=== PATIENT | male | born 1965 | race Hispanic/Latino ===

== ENCOUNTER 2021-06-08 08:17 | Day surgery (SDC) | payer OTHER ==
[2021-06-06 10:33] LABS: BASOPHILS % (AUTO) 0.7 % (0.0-5.0); EOSINOPHILS % (AUTO) 6.4 % (0.0-8.0); HEMATOCRIT 44.2 % (42-54); LYMPHOCYTES % (AUTO) 14.4 % (21.0-51.0); MEAN CORPUSCULAR HEMOGLOBIN 30.7 pg (27.0-33.0); MEAN CORPUSCULAR HGB CONC 33.7 g/dL (32.0-36.0); MEAN CORPUSCULAR VOLUME 90.9 fL (79-99); MONOCYTES % (AUTO) 6.4 % (3.0-13.0); NEUTROPHILS % (AUTO) 71.8 % (40.0-77.0); PLATELET COUNT (AUTO) 185 K/uL (130-400); RED BLOOD CELL COUNT(AUTO) 4.86 MIL/uL (4.50-6.20); RED CELL DISTRIBUTION WIDTH 12.3 % (11.0-15.5); WHITE BLOOD COUNT (AUTO) 6.7 K/uL (4.8-10.8)
[2021-06-06 10:45] LABS: INR 0.98 (0.85-1.15); PROTHROMBIN TIME 10.7 SEC (9.6-11.6)
[2021-06-06 10:46] LABS: PARTIAL THROMBOPLASTIN TIME 27.3 SEC (26.3-35.5)
[2021-06-06 10:51] LABS: POTASSIUM 3.8 mmol/L (3.5-5.1)
[2021-06-07 12:03] VITALS: BP 148/90
[2021-06-08] VITALS (13 sets, daily range): BP systolic 130–168; BP diastolic 90–102
[~2021-06-08] VITALS: Ht 180.3 cm; Wt 92.3 kg
[~2021-06-08 08:17] MED LIST: CEFAZOLIN SODIUM 2 GM VIAL IV SCH; TRAZ-187 PO
[2021-06-08] MEDS ORDERED: CEFAZOLIN SODIUM 1 GM VIAL ONE (09:33)
[2021-06-08] MEDS ORDERED: LACTATED RINGERS 1000ML 1,000 ML IV ONE (09:33)
[2021-06-08] MEDS ORDERED: MIDAZOLAM HCL 1 MG/ML 2ML VIAL ONE (11:44)
[2021-06-08] MEDS ORDERED: ONDANSETRON 4MG INJ ONE (11:44)
[2021-06-08] MEDS ORDERED: LIDOCAINE PF 100MG/5ML (2%) SYRINGE 5ML ONE (11:47)
[2021-06-08] MEDS ORDERED: PROPOFOL 10 MG/ML 20ML VIAL IV ONE (11:48)
[2021-06-08] MEDS ORDERED: BUPIVACAINE/PF 0.25% 30ML VIAL IJ ONE (11:51)
[2021-06-08] MEDS ORDERED: FENTANYL CITRATE PF 50 MCG/1 ML 2ML VIAL ONE (12:04)
[2021-06-08] MEDS ORDERED: ROCURONIUM 10MG/1ML SYR 10 MG/ML ML ONE (12:08)
[2021-06-08] MEDS ORDERED: GLYCOPYRROLATE 1 MG/5 ML SYRINGE ONE (12:45)
[2021-06-08] MEDS ORDERED: BUPIVACAINE/EPI/PF 0.25% 10ML VIAL IJ ONE (12:57)
[2021-06-08] MEDS ORDERED: BACITRACIN 28.4 GM OINT TP ONE (12:58)
[2021-06-08] MEDS ORDERED: HYDRALAZINE 20MG/ML VIAL ONE (14:26)
== END 2021-06-08 15:00 | disposition home or self-care (01) ==
LOC: DAH 08:17
PROVIDERS: ATTEND Urology
DX: N43.2 Other hydrocele (principal); Z20.822 Contact with and (suspected) exposure to COVID-19; Z79.01 Long term (current) use of anticoagulants; Z86.73 Personal history of transient ischemic attack (TIA), and cerebral infarction without residual deficits
CPT/HCPCS: 36415; 55040; 71045; 80048; 85025; 85610; 85730; 87635; 93005; A4215; A4221; A4222; A4223; A4606; A4663; A6260; C9803; J0360; J0690; J2001; J2250; J2405; J2704; J3010; J3490 ×3; J7030; J7120